=== PATIENT | male | born 1955 | race Caucasian/White ===

== ENCOUNTER → 2017-02-23 | Outpatient (CLI) | payer OTHER ==
--- NOTE | 2017-02-25 09:57 | US ---
Procedure: US THYROID Exam Date: 02/23/2017 2:44 PM CDT Ordering Provider: MARIAMA ESPINOZA Clinical Indication: NONTOXIC SINGLE THYROID NODULE Comparison: None Technique: Real-time ultrasonography was obtained of the thyroid gland and site safety representative images were recorded. Findings: The right lobe of the thyroid gland measures 5.2 x 2.5 x 2.0 cm in CC, AP, and transverse dimensions. There is a 1.7 x 1.1 x 1.0 cm hypoechoic solid nodule in the upper pole. There is also a 1.1 x 0.7 x 0.7 cm midpole subtle hyperechoic nodule. The left lobe of the thyroid gland measures 4.2 x 1.7 x 1.5 cm in CC, AP, and transverse dimensions. There is a millimetric cyst within the lower pole. There is also a 1.2 x 0.9 cm subtle isoechoic nodule. The thyroid isthmus is of normal thickness. There are no nodules in the thyroid isthmus. Impression: Multinodular thyroid goiter with dominant hypoechoic nodule measuring 1.7 x 1.1 x 1.0 cm in the superior pole of the right thyroid lobe. This meets SRU criteria for histologic sampling. Electronically signed by: Gamal Izaguirre MD 02/25/2017 9:55 AM CDT
== END ==
LOC: US 14:36
PROVIDERS: ATTEND Family Medicine
DX: E04.1 Nontoxic single thyroid nodule (principal)

== ENCOUNTER → 2017-05-31 | Outpatient (CLI) | payer BC, OTHER ==
--- NOTE | 2017-05-31 21:01 | US ---
EXAM DESCRIPTION: Gall Bladder CLINICAL HISTORY: 61 years Male cholecystitis COMPARISON: None. TECHNIQUE: Transabdominal grayscale imaging were performed to evaluate the right upper quadrant. FINDINGS: Pancreas appears unremarkable. No acute abdomen evaluate the liver. No evidence of gallbladder wall thickening. No pericholecystic fluid. Common duct measures 5 mm. Unremarkable right kidney without hydronephrosis mass or calculus. Small gallbladder wall polyp measuring 3 mm. IMPRESSION: No evidence of acute cholecystitis Small gallbladder polyp Otherwise unremarkable right upper quadrant Electronically signed by: Maia Denise 05/31/2017 9:00 PM HAND SPRAY OPERATOR
== END | disposition home or self-care (01) ==
LOC: US 07:53
PROVIDERS: ATTEND Family Medicine
DX: K81.0 Acute cholecystitis (principal)

== ENCOUNTER → 2017-08-08 | Outpatient (CLI) | payer BC | LOC: GMAH 17:24 | PROVIDERS: ATTEND Family Medicine | DX: R39.12 Poor urinary stream (principal) ==

== ENCOUNTER 2017-11-27 18:29 | Emergency (ER) | payer BC ==
[2017-11-27] MEDS ORDERED: LIDOCAINE 1% 10 ML VIAL INJ ONE (18:44)
[2017-11-27 18:45] VITALS: TEMP 98; O2SAT 98
[2017-11-27] MEDS ORDERED: NEOMYCIN-BACITRACIN-POLYMYXIN 0.9 GM UD TOP ONE (18:52)
[2017-11-27] MEDS ORDERED: CIPROFLOXACIN 500 MG TAB PO ONE (18:53)
[2017-11-27] MEDS ORDERED: SULFA/TRIMETH 800/160 (DS) TAB 1 EA TAB PO ONE (18:53)
--- NOTE | 2017-11-27 18:56 | ED.PDOC ---
History of Present Illness - General Chief Complaint: Skin/Abrasion/Tear Stated Complaint: left heel foreign body Time Seen by Provider: 11/27/17 18:33 Source: patient Exam Limitations: no limitations - History of Present Illness Initial Comments: the patient 62-year-old male presenting to the emergency room secondary to having stuck something in his left heel yesterday. Today the pain is increasing in the heel and there is some swelling. where puncture wound is is directly center of the heel. There is a very small abscess forming. Risks and benefits of I&D were explained and the patient agrees to proceed. 0.5 cc of Xylocaine without epinephrine was used for local anesthetic after cleaning with alcohol. pickups with teeth and a 15 blade scalpel were used to unroof the abscess. Total diameter of the unroofed area is slightly less than 1 cm. ebl less than 0.5 cc Timing/Duration: 24 hours Severity: moderate Improving Factors: nothing Worsening Factors: nothing Associated Symptoms: denies symptoms Allergies/Adverse Reactions: Allergies NO KNOWN ALLERGY Allergy (Verified 11/27/17 18:45) Home Medications: Ambulatory Orders Aspirin [Aspirin 81] 81 mg PO DAILY 06/04/13 Atorvastatin Calcium [Lipitor] 10 mg PO DAILY 06/04/13 Carvedilol 12.5 mg PO DAILY 06/04/13 Lisinopril 10 mg PO DAILY 06/04/13 Omeprazole [Prilosec] 20 mg PO DAILY 06/04/13 Sitagliptin Phosphate [Januvia] 100 mg PO DAILY 06/04/13 Amlodipine Besylate 10 mg PO DAILY 11/27/17 Atorvastatin Calcium [Lipitor] 20 mg PO DAILY 11/27/17 Ciprofloxacin [Cipro] 500 mg PO BID #10 tab 11/27/17 Metformin HCl 1,000 mg PO DAILY 11/27/17 Sulfa/Trimeth 800/160 (Ds) Tab [Bactrim DS Tab] 1 ea PO BID #10 tab 11/27/17 Tamsulosin [Flomax] 0.4 mg PO QD 11/27/17 Review of Systems - Review of Systems Constitutional: States: no symptoms reported EENTM: States: no symptoms reported Respiratory: States: no symptoms reported Cardiology: States: no symptoms reported Gastrointestinal/Abdominal: States: no symptoms reported Genitourinary: States: no symptoms reported Musculoskeletal: States: no symptoms reported Skin: States: see HPI Neurological: States: no symptoms reported Endocrine: States: no symptoms reported All other Systems: No Change from Baseline Past Medical History (General) - Patient Medical History Hx Cardiac Disorders: Yes - ID x4, hyperlipidemia Hx Hypertension: Yes Hx Diabetes: Yes Hx Cancer: Yes - melanoma Hx MRSA: Yes - Abscess 2007 MRSA Source:: Wound Surgical History: other - Vaccination History Hx Influenza Vaccination: No Hx Pneumococcal Vaccination: No - Social History Hx Tobacco Use: No Hx Alcohol Use: No Family Medical History - Family History Mother Family History: Unknown Physical Exam - Physical Exam General Appearance: Alert, Comfortable, No apparent distress Eye Exam: bilateral normal Ears, Nose, Throat: hearing grossly normal, normal ENT inspection Neck: full range of motion Respiratory: no respiratory distress, no accessory muscle use Cardiovascular/Chest: normal peripheral pulses, no edema Peripheral Pulses: radial,right: 2+, radial,left: 2+, dorsalis pedis,right: 2+, dorsalis pedis,left: 2+ Rectal Exam: deferred Extremity: normal range of motion, no pedal edema, normal capillary refill, other - wound VAC is in place in the left axillary region Neurologic: digital content manager II-XII nml as tested, alert, normal mood/affect, oriented x 3 Skin Exam: normal color - with the exception of the small abscess Comments: Vital Signs - 24 hr 11/27/17 18:35 Temperature 98.0 F Pulse Rate [ 96 H pulse ox] Respiratory 20 Rate Blood Pressure 204/108 [Left Arm] O2 Sat by Pulse 98 Oximetry Progress - Progress Progress: 11/27/17 18:57 the patient is a 62-year-old male presenting to the emergency room secondary to a small abscess forming on the plantar aspect of the left heel after a puncture wound yesterday. The patient is up-to-date on his tetanus. The patient was given a dose of Bactrim and ciprofloxacin and will continue on these for 5 days. the small abscess was unroofed. No foreign body was found. No significant extending cellulitis at this time. The wound is covered with antibiotic ointment and a Band-Aid. He does need to monitor for any evidence of spread of infection. ER warnings were given for any worsening. Departure - Departure Clinical Impression: Abscess of foot excluding toes Disposition: Discharge to Home or Self Care Condition: Fair Departure Forms: ED Discharge - Pt. Copy, Patient Portal Self Enrollment Instructions: DI for Wound Infection Diet: regular diet Activity: increase activity as tolerated Referrals: Ian Slaughter MD [Primary Care Provider] - 1-2 Weeks Prescriptions: Ciprofloxacin [Cipro] 500 mg PO BID #10 tab Sulfa/Trimeth 800/160 (Ds) Tab [Bactrim DS Tab] 1 ea PO BID #10 tab Home Medications: Ambulatory Orders Aspirin [Aspirin 81] 81 mg PO DAILY 06/04/13 Atorvastatin Calcium [Lipitor] 10 mg PO DAILY 06/04/13 Carvedilol 12.5 mg PO DAILY 06/04/13 Lisinopril 10 mg PO DAILY 06/04/13 Omeprazole [Prilosec] 20 mg PO DAILY 06/04/13 Sitagliptin Phosphate [Januvia] 100 mg PO DAILY 06/04/13 Amlodipine Besylate 10 mg PO DAILY 11/27/17 Atorvastatin Calcium [Lipitor] 20 mg PO DAILY 11/27/17 Ciprofloxacin [Cipro] 500 mg PO BID #10 tab 11/27/17 Metformin HCl 1,000 mg PO DAILY 11/27/17 Sulfa/Trimeth 800/160 (Ds) Tab [Bactrim DS Tab] 1 ea PO BID #10 tab 11/27/17 Tamsulosin [Flomax] 0.4 mg PO QD 11/27/17 Additional Instructions: the patient is a 62-year-old male presenting to the emergency room secondary to a small abscess forming on the plantar aspect of the left heel after a puncture wound yesterday. The patient is up-to-date on his tetanus. The patient was given a dose of Bactrim and ciprofloxacin and will continue on these for 5 days. the small abscess was unroofed. No foreign body was found. No significant extending cellulitis at this time. The wound is covered with antibiotic ointment and a Band-Aid. He does need to monitor for any evidence of spread of infection. ER warnings were given for any worsening. he does need to monitor his blood pressures closely as they were elevated here likely due to pain. He also needs to hold his cholesterol medication while taking the antibiotics.
[2017-11-27 19:13] VITALS: BP 199/100
== END 2017-11-27 19:13 | disposition home or self-care (01) ==
LOC: ER 18:29
DX: L02.612 Cutaneous abscess of left foot (principal); Z79.82 Long term (current) use of aspirin; Z79.899 Other long term (current) drug therapy; I25.2 Old myocardial infarction; I10 Essential (primary) hypertension; E11.9 Type 2 diabetes mellitus without complications

== ENCOUNTER → 2018-03-16 | Outpatient (CLI) | payer BC | LOC: LAB.O 08:38 | PROVIDERS: ATTEND Internal Medicine Hematology & Oncology | DX: C43.59 Malignant melanoma of other part of trunk (principal); C77.3 Secondary and unspecified malignant neoplasm of axilla and upper limb lymph nodes; I10 Essential (primary) hypertension; I25.10 Atherosclerotic heart disease of native coronary artery without angina pectoris; E11.9 Type 2 diabetes mellitus without complications; E78.5 Hyperlipidemia, unspecified ==

== ENCOUNTER → 2018-04-13 | Outpatient (CLI) | payer BC | LOC: LAB.O 08:50 | PROVIDERS: ATTEND Internal Medicine Hematology & Oncology | DX: C43.59 Malignant melanoma of other part of trunk (principal); C77.3 Secondary and unspecified malignant neoplasm of axilla and upper limb lymph nodes; I10 Essential (primary) hypertension; I25.10 Atherosclerotic heart disease of native coronary artery without angina pectoris; E11.9 Type 2 diabetes mellitus without complications; E78.5 Hyperlipidemia, unspecified ==

== ENCOUNTER → 2018-05-11 | Outpatient (CLI) | payer BC | LOC: LAB.O 09:49 | PROVIDERS: ATTEND Internal Medicine Hematology & Oncology | DX: C43.59 Malignant melanoma of other part of trunk (principal); C77.3 Secondary and unspecified malignant neoplasm of axilla and upper limb lymph nodes; I10 Essential (primary) hypertension; I25.10 Atherosclerotic heart disease of native coronary artery without angina pectoris; E11.9 Type 2 diabetes mellitus without complications; E78.5 Hyperlipidemia, unspecified ==

== ENCOUNTER → 2018-06-08 | Outpatient (CLI) | payer BC | LOC: LAB.O 12:45 | PROVIDERS: ATTEND Internal Medicine Hematology & Oncology | DX: C43.59 Malignant melanoma of other part of trunk (principal); I10 Essential (primary) hypertension; I25.10 Atherosclerotic heart disease of native coronary artery without angina pectoris; E11.9 Type 2 diabetes mellitus without complications; E78.5 Hyperlipidemia, unspecified ==

== ENCOUNTER → 2018-07-20 | Outpatient (CLI) | payer OTHER | LOC: LAB.O 09:49 | PROVIDERS: ATTEND Internal Medicine Hematology & Oncology | DX: C43.59 Malignant melanoma of other part of trunk (principal); C77.3 Secondary and unspecified malignant neoplasm of axilla and upper limb lymph nodes; I10 Essential (primary) hypertension; I25.10 Atherosclerotic heart disease of native coronary artery without angina pectoris; E11.9 Type 2 diabetes mellitus without complications; E78.5 Hyperlipidemia, unspecified ==

== ENCOUNTER → 2018-08-03 | Outpatient (CLI) | payer OTHER | LOC: LAB.O 09:53 | PROVIDERS: ATTEND Internal Medicine Hematology & Oncology | DX: C43.59 Malignant melanoma of other part of trunk (principal); C77.3 Secondary and unspecified malignant neoplasm of axilla and upper limb lymph nodes; I25.10 Atherosclerotic heart disease of native coronary artery without angina pectoris; I10 Essential (primary) hypertension; E11.9 Type 2 diabetes mellitus without complications; E78.5 Hyperlipidemia, unspecified ==

== ENCOUNTER → 2019-03-01 | Outpatient (CLI) | payer BC | LOC: LAB.O 12:52 | PROVIDERS: ATTEND Internal Medicine Hematology & Oncology | DX: C77.3 Secondary and unspecified malignant neoplasm of axilla and upper limb lymph nodes (principal); I10 Essential (primary) hypertension; I25.10 Atherosclerotic heart disease of native coronary artery without angina pectoris; E11.9 Type 2 diabetes mellitus without complications; E78.5 Hyperlipidemia, unspecified ==

== ENCOUNTER → 2019-08-13 | Outpatient (CLI) | payer BC | LOC: LAB.O 08:40 | PROVIDERS: ATTEND Nurse Practitioner Family | DX: E11.42 Type 2 diabetes mellitus with diabetic polyneuropathy (principal); E11.59 Type 2 diabetes mellitus with other circulatory complications; E11.65 Type 2 diabetes mellitus with hyperglycemia; E78.2 Mixed hyperlipidemia ==

== ENCOUNTER → 2020-04-24 | Outpatient (CLI) | payer BC | LOC: GMA MATASK 10:40 | PROVIDERS: ATTEND Family Medicine | DX: Z12.5 Encounter for screening for malignant neoplasm of prostate (principal) ==

== ENCOUNTER → 2020-05-21 | Outpatient (CLI) | payer BC | LOC: LAB.O 09:07 | PROVIDERS: ATTEND Nurse Practitioner Family | DX: E11.42 Type 2 diabetes mellitus with diabetic polyneuropathy (principal); E11.59 Type 2 diabetes mellitus with other circulatory complications; E11.65 Type 2 diabetes mellitus with hyperglycemia; E78.2 Mixed hyperlipidemia ==